=== PATIENT | male | born 2000 | race Two or more races ===

== ENCOUNTER → 2022-10-05 | Emergency (ER) | payer SELFPAY ==
[~2022-10-05] VITALS: Ht 165.1 cm; Wt 56.7 kg
[~2022-10-05] MED LIST: CEPH500C2 PO; CEPHALEXIN MONOHYDRATE 500 MG CAPSULE PO ONE; LIDOCAINE HCL/MPF 1% 30 ML VIAL IJ ONE; TDAP [DIPH/PERTUSSIS/TET] 0.5 ML VIAL IM ONE
--- NOTE | 2022-10-05 09:06 | NUR ---
BIBFAMILY C/O RIGHT FOREARM LACERATION FROM A FALL LAST NIGHT, DENIES LOC
--- NOTE | 2022-10-05 09:25 | NUR ---
technical inspector at bedside
--- NOTE | 2022-10-05 09:33 | NUR ---
tdap given as ordered
--- NOTE | 2022-10-05 10:15 | NUR ---
DR. CARLSON DID LACERATION REPAIR ASEPTICALLY AT BED SIDE
--- NOTE | 2022-10-05 10:37 | NUR ---
ANTIBIOTIC OINTMENT AND ARM SLING APPLIED
--- NOTE | 2022-10-05 10:42 | NUR ---
Patient discharged to home in stable condition. Written and verbal after care instructions given. Patient verbalizes understanding of instruction.
[2022-10-05 10:43] VITALS: BP 120/70
== END | disposition home or self-care (01) ==
LOC: ER 09:03
DX: S51.011A Laceration without foreign body of right elbow, initial encounter (principal); F10.10 Alcohol abuse, uncomplicated; W19.XXXA Unspecified fall, initial encounter; Y93.89 Activity, other specified; Y92.89 Other specified places as the place of occurrence of the external cause; Y99.8 Other external cause status; Y90.9 Presence of alcohol in blood, level not specified
CPT/HCPCS: 99284; 12002; 90471; 90715; 73080; 73090; 73060; A6403; J3490

== ENCOUNTER 2023-07-27 22:56 | Emergency (ER) | payer OTHER ==
[~2023-07-27] VITALS: Ht 170.2 cm; Wt 63.0 kg
[~2023-07-27 22:56] MED LIST changes: -CEPHALEXIN MONOHYDRATE 500 MG CAPSULE PO ONE; -LIDOCAINE HCL/MPF 1% 30 ML VIAL IJ ONE; -TDAP [DIPH/PERTUSSIS/TET] 0.5 ML VIAL IM ONE
[2023-07-27] MEDS ORDERED: HYDROCODONE/APAP 5/325MG TABLET ONE (23:12)
[2023-07-27] MEDS ORDERED: TDAP [DIPH/PERTUSSIS/TET] 0.5 ML VIAL IM ONE ×2 (23:12→23:30)
[2023-07-27] MEDS ORDERED: HYDROCODONE/APAP 5/325MG TABLET PO ONE (23:30)
[2023-07-27 23:34] VITALS: BP 133/73; TEMP 98.6; O2SAT 99
== END 2023-07-28 01:21 | disposition left against medical advice (07) ==
LOC: ER 22:59
DX: S01.01XA Laceration without foreign body of scalp, initial encounter (principal); F10.10 Alcohol abuse, uncomplicated; Z79.899 Other long term (current) drug therapy; Y90.9 Presence of alcohol in blood, level not specified; Y04.8XXA Assault by other bodily force, initial encounter; Y93.89 Activity, other specified; Y92.89 Other specified places as the place of occurrence of the external cause; Y99.8 Other external cause status
CPT/HCPCS: 70450-TC; 70486-TC; 72125-TC; 90715